=== PATIENT | female | born 1985 | race American Indian/Alaskan Native ===

== ENCOUNTER → 2016-12-12 | Emergency (ER) | payer OTHER ==
[~2016-12-12] VITALS: Ht 162.6 cm; Wt 121.6 kg
[~2016-12-12] MED LIST: FLEXERIL10 MG PO; FLOVENT HFA12 G1 INH; GABAPENTIN600 MG PO; HYDROCODON-ACE1 EA11 PO; KEPPRA250 MG PO; LEVETIRACETAM500 MG; LORAZEPAM1 MG PO; VENTOLIN HFA18 GM IH; VICODIN 5-5001 EACH PO; VIMPAT100 MG PO; ZITHROMAX250 MG PO
--- NOTE | 2016-12-12 21:46 | EKG ---
[facility] [address] [facility] [place] [address] Signed Normal sinus rhythm Normal ECG No previous ECGs available Confirmed by MARYANN ARDON MD ([id number]) on 12/12/2016 9:46:20 PM Electronically Signed By: MARYANN ARDON MD 12/12/16 2146 PATIENT NAME: CRISTOBAL JACQUES Electrocardiogram DATE OF : 85 PHYSICIAN: MARYANN ARDON MD REPORT #: [id number] REPORT IS CONFIDENTIAL AND NOT TO BE RELEASED WITHOUT AUTHORIZATION
== END ==
LOC: ED 17:36
DX: R20.8 Other disturbances of skin sensation (principal); M54.2 Cervicalgia; F41.9 Anxiety disorder, unspecified; F43.10 Post-traumatic stress disorder, unspecified; G40.909 Epilepsy, unspecified, not intractable, without status epilepticus; Z87.891 Personal history of nicotine dependence; Z90.49 Acquired absence of other specified parts of digestive tract; Z90.89 Acquired absence of other organs; Z88.1 Allergy status to other antibiotic agents; Z88.0 Allergy status to penicillin; Z79.899 Other long term (current) drug therapy
CPT/HCPCS: 70450; 93005; 93010; 99284

== ENCOUNTER 2017-07-06 11:32 | Emergency (ER) | payer OTHER ==
[~2017-07-06] VITALS: Ht 162.6 cm; Wt 121.6 kg
--- OUTSIDE RECORDS SUMMARY | 2017-07-06 12:22 | XMS | Clinical Summary ---
Demographics + + + | Address | [address] | | | [place] [address] | + + + | Home Phone | | + + + | Preferred Language | Unknown | + + + | Marital Status | Single | + + + | Jew Affiliation | ANALY | + + + | Race | or | + + + | Ethnic Group | Not or | + + + Author + + + | Author | [facility] | + + + | Organization | [facility] | + + + | Address | Unknown | + + + | Phone | Unavailable | + + + Support + + +---------+ + | Name | Relationship | Address | Phone | + + +---------+ + | Naima Pitts | ECON | Unknown | | + + +---------+ + Care Team Providers + +------+ + | Care Slide Machine Tender Name | Role | Phone | + +------+ + | Terra AlvarezP | PP | Unavailable | + +------+ + Source Comments DIANDRA is fully live on both [facility]ulatory and [facility] InPatient.[facility] Allergies + + + + + + | Active Allergy | Reactions | Severity | Noted | Comments | | | | | Date | | + + + + + + | Amoxicillin | Hives, Pruritus | | 09/10/19 | | | | | | 12 | | + + + + + + | Propoxyphene | Pruritus | | 11/16/19 | | | N-Acetaminophen | | | 12 | | + + + + + + | Penicillin G | Hives, Pruritus | | 09/10/19 | | | | | | 12 | | + + + + + + Current Medications + + + +---------+------+------+-------+ | Prescription | Sig. | Disp. | Refills | Star | End | Statu | | | | | | t | Date | s | | | | | | Date | | | + + + +---------+------+------+-------+ | | Take 1 Tab by mouth | | | | | Activ | | acetaminophen-codein | every six hours as | | | | | e | | e 300-30 mg Oral | needed. | | | | | | | Tablet | | | | | | | + + + +---------+------+------+-------+ | chlorhexidine 0.12 | Take 15 mL by mouth | | | | | Activ | | % Mucous Membrane | two times daily. | | | | | e | | Mouthwash | Swish undiluted oral | | | | | | | | rinse around in | | | | | | | | mouth for 30 | | | | | | | | seconds, then spit. | | | | | | | | Do not swallow. | | | | | | + + + +---------+------+------+-------+ | citalopram 10 mg | Take 10 mg by mouth | | | | | Activ | | Oral Tablet | once daily. | | | | | e | + + + +---------+------+------+-------+ | clindamycin 300 mg | Take 300 mg by mouth | | | | | Activ | | Oral Capsule | every eight hours. | | | | | e | | | | | | | | | + + + +---------+------+------+-------+ | cyclobenzaprine 10 | Take 10 mg by mouth | | | | | Activ | | mg Oral Tablet | three times daily as | | | | | e | | | needed. Do not use | | | | | | | | longer than 2-3 | | | | | | | | weeks. | | | | | | + + + +---------+------+------+-------+ | docusate sodium | Take 100 mg by mouth | | | | | Activ | | 100 mg Oral Capsule | two times daily. | | | | | e | + + + +---------+------+------+-------+ | ergocalciferol | Take 50,000 Units by | | | | | Activ | | 50,000 unit Oral | mouth every seven | | | | | e | | Capsule | days. | | | | | | + + + +---------+------+------+-------+ | gabapentin 600 mg | Take 600 mg by mouth | | | | | Activ | | Oral | four times daily. | | | | | e | | TabletIndications: | Indications: Partial | | | | | | | Partial Epilepsy | Epilepsy Treatment | | | | | | | Treatment Adjunct | Adjunct | | | | | | + + + +---------+------+------+-------+ | levOCARNitine 500 | Take 500 mg by | | | | | Activ | | mg Oral Wafer | mouth. | | | | | e | + + + +---------+------+------+-------+ | LORazepam 0.5 mg | Take 0.5 mg by mouth | | | | | Activ | | Oral | every four hours as | | | | | e | | TabletIndications: | needed. | | | | | | | anxiety, seizure | Indications: | | | | | | | auras | Anxiety, seizure | | | | | | | | auras | | | | | | + + + +---------+------+------+-------+ | | Take 1-2 Tabs by | | | | | Activ | | aspirin-acetaminophe | mouth every four | | | | | e | | n-caffeine (EXCEDRIN | hours as needed. | | | | | | | MIGRAINE) | Indications: | | | | | | | 250-250-65 mg Oral | Headache Disorder, | | | | | | | TabletIndications: | Migraine | | | | | | | Headache Disorder, | | | | | | | | Migraine | | | | | | | + + + +---------+------+------+-------+ | LORazepam 0.5 mg | Take 1 tablet by | 6 Tab | 0 | 08/1 | | Activ | | Oral Tablet | mouth twice daily | | | 0/20 | | e | | | for 2 days, then 1 | | | 12 | | | | | tablet by mouth at | | | | | | | | night for 2 days, | | | | | | | | then discontinue. | | | | | | | | Can continue to take | | | | | | | | lorazepam 0.5 mg q | | | | | | | | 4 hours PRN | | | | | | | | aura/seizure as | | | | | | | | before. | | | | | | + + + +---------+------+------+-------+ | levETIRAcetam 250 | Take 1 Tab by mouth | 60 Tab | 1 | 09/0 | | Activ | | mg Oral | two times daily. | | | 20 | | e | | tabletIndications: | Indications: Partial | | | 12 | | | | Partial Epilepsy | Epilepsy Treatment | | | | | | | Treatment Adjunct | Adjunct | | | | | | + + + +---------+------+------+-------+ Active Problems + + + | Problem | Noted Date | + + + | Convulsion (HCC) | 11/16/2011 | + + + | Migraine with aura, intractable | 11/16/2011 | + + + | Low back pain - Chronic | 11/16/2011 | + + + | Depression with anxiety | 11/16/2011 | + + + | Arthritis - Hands | 11/16/2011 | + + + Family History + + +------+ + | Medical History | Relation | Name | Comments | + + +------+ + | Arthritis | Maternal | | | | | Aunt | | | + + +------+ + | Arthritis | Maternal | | | | | Grandmoth | | | | | er | | | + + +------+ + | Arthritis | Maternal | | | | | Uncle | | | + + +------+ + | Arthritis | Mother | | | + + +------+ + + +------+--------+ + | Relation | Name | Status | Comments | + +------+--------+ + | Maternal Aunt | | | | + +------+--------+ + | Maternal Grandmother | | | | + +------+--------+ + | Maternal Uncle | | | | + +------+--------+ + | Mother | | | | + +------+--------+ + Social History + +-------+ +--------+------+ | Tobacco Use | Types | Packs/Day | Years | Date | | | | | Used | | + +-------+ +--------+------+ | Never Smoker | | | | | + +-------+ +--------+------+ + + +---------+ + | Alcohol Use | Drinks/We | oz/Week | Comments | | | ek | | | + + +---------+ + | Yes | | | 4 - 5 x per year, but can may drink "alot" | | | | | when she drinks | + + +---------+ + + + + | Sex Assigned at | Date Recorded | | | | + + + | Not on file | | + + + Last Filed Vital Signs + + + + | Vital Sign | Reading | Time Taken | + + + + | Blood Pressure | 115/67 | 11/20/2011 8:50 AM PDT | + + + + | Pulse | 84 | 11/20/2011 8:50 AM PDT | + + + + | Temperature | 36.7 C (98.1 F) | 11/20/2011 8:50 AM PDT | + + + + | Respiratory Rate | 14 | 11/20/2011 8:50 AM PDT | + + + + | Oxygen Saturation | 98% | 11/20/2011 8:50 AM PDT | + + + + | Inhaled Oxygen | - | - | | Concentration | | | + + + + | Weight | 117.9 kg (260 lb) | 09/10/2011 1:13 PM PDT | + + + + | Height | 162.6 cm (5' 4") | 11/16/2011 7:44 PM PDT | + + + + | Body Mass Index | 46.06 | 09/10/2011 1:13 PM PDT | + + + + Plan of Treatment + + + + + | Health Maintenance | Due Date | Last Done | Comments | + + + + + | INFLUENZA VACCINE | | | | | (FLU SHOT) | 7 | | | + + + + + Results Not on filefrom Last 3 Months
[2017-07-06] MEDS ORDERED: NORCO 5-325 TA1 EACH PO (14:02)
[2017-07-06] MEDS ORDERED: ANUSOL-HC25 MG PR (14:02)
== END 2017-07-06 14:25 | disposition home or self-care (01) ==
LOC: ED 11:32
DX: K62.5 Hemorrhage of anus and rectum (principal); G40.909 Epilepsy, unspecified, not intractable, without status epilepticus; F41.9 Anxiety disorder, unspecified; Z87.891 Personal history of nicotine dependence; Z88.1 Allergy status to other antibiotic agents; Z88.0 Allergy status to penicillin; Z88.8 Allergy status to other drugs, medicaments and biological substances; Z79.899 Other long term (current) drug therapy
CPT/HCPCS: 74177; 80048; 81001; 84703; 85025; 99284; Q9967

== ENCOUNTER 2017-08-16 13:40 | Emergency (ER) | payer OTHER ==
[~2017-08-16] VITALS: Ht 162.6 cm; Wt 121.6 kg
[~2017-08-16 13:40] MED LIST changes: +ANUSOL-HC25 MG PR; +NORCO 5-325 TA1 EACH PO
[2017-08-16] MEDS ORDERED: APTIOM400 MG PO (14:41)
[2017-08-16] MEDS ORDERED: IBUPROFEN800 MG PO (14:53)
[2017-08-16] MEDS ORDERED: ZOFRAN4 MG PO (14:54)
[2017-08-16] MEDS ORDERED: MELOXICAM15 MG PO (14:54)
[2017-08-16] MEDS ORDERED: PAROXETINE HCL20 MG PO (14:55)
[2017-08-16] MEDS ORDERED: PAIN RELIEVER500 M1 PO (14:56)
[2017-08-16] MEDS ORDERED: ROBAXIN-750750 MG PO (14:57)
[2017-08-16] MEDS ORDERED: ALLERGY RELIEF60 MG PO (14:59)
[2017-08-16] MEDS ORDERED: POTASSIUM GLUC500 MG PO (15:00)
[2017-08-16] MEDS ORDERED: VITAMIN D2000 UNI1 PO (15:01)
[2017-08-16] MEDS ORDERED: LORAZEPAM0.5 MG PO (15:03)
[2017-08-16] MEDS ORDERED: VIMPAT100 MG PO (15:03)
--- NOTE | 2017-08-17 08:04 | EKG ---
[facility] [address] [facility] [place] [address] Signed Normal sinus rhythm Nonspecific T wave abnormality Prolonged QT Abnormal ECG When compared with ECG of 12-DEC-2016 18:30, Nonspecific T wave abnormality now evident in Lateral leads Confirmed by CECIILA BRUCE MD ([id number]) on 08/17/2017 8:04:11 AM Electronically Signed By: CECILIA BRUCE MD 08/17/17 0804 PATIENT NAME: MAUREENCRISTOBAL VERA Electrocardiogram DATE OF : 85 PHYSICIAN: CECILIA BRUCE MD REPORT #: [id number] REPORT IS CONFIDENTIAL AND NOT TO BE RELEASED WITHOUT AUTHORIZATION
== END 2017-08-16 19:50 | disposition home or self-care (01) ==
LOC: ED 13:40
DX: S06.0X0A Concussion without loss of consciousness, initial encounter (principal); S39.012A Strain of muscle, fascia and tendon of lower back, initial encounter; S29.012A Strain of muscle and tendon of back wall of thorax, initial encounter; S16.1XXA Strain of muscle, fascia and tendon at neck level, initial encounter; S30.1XXA Contusion of abdominal wall, initial encounter; S20.219A Contusion of unspecified front wall of thorax, initial encounter; S00.03XA Contusion of scalp, initial encounter; S00.83XA Contusion of other part of head, initial encounter; G40.909 Epilepsy, unspecified, not intractable, without status epilepticus; M79.609 Pain in unspecified limb; M79.1 Myalgia; R55 Syncope and collapse; R20.2 Paresthesia of skin; T42.6X5A Adverse effect of other antiepileptic and sedative-hypnotic drugs, initial encounter; Z88.0 Allergy status to penicillin; Z88.1 Allergy status to other antibiotic agents; Z79.899 Other long term (current) drug therapy; W18.2XXA Fall in (into) shower or empty bathtub, initial encounter
CPT/HCPCS: 70450; 71260; 72125; 74177; 80053; 82542; 84703; 85025; 93005; 93010; 96361; 96374; 96375; 99284; J1170; J2060; J2405; J7120; Q9967

== ENCOUNTER 2017-08-24 10:54 | Emergency (ER) | payer OTHER ==
[~2017-08-24] VITALS: Ht 162.6 cm; Wt 121.6 kg
[~2017-08-24 10:54] MED LIST changes: +ALLERGY RELIEF60 MG PO; +APTIOM400 MG PO; +IBUPROFEN800 MG PO; +LORAZEPAM0.5 MG PO; +MELOXICAM15 MG PO; +PAIN RELIEVER500 M1 PO; +PAROXETINE HCL20 MG PO; +POTASSIUM GLUC500 MG PO; +ROBAXIN-750750 MG PO; +VITAMIN D2000 UNI1 PO; +ZOFRAN4 MG PO
[2017-08-24] MEDS ORDERED: HORIZANT600 MG PO (13:35)
== END 2017-08-24 15:15 | disposition home or self-care (01) ==
LOC: ED 10:54
DX: E87.6 Hypokalemia (principal); G40.909 Epilepsy, unspecified, not intractable, without status epilepticus; R53.1 Weakness; F41.9 Anxiety disorder, unspecified; G43.909 Migraine, unspecified, not intractable, without status migrainosus; F17.200 Nicotine dependence, unspecified, uncomplicated; Z88.0 Allergy status to penicillin; Z88.1 Allergy status to other antibiotic agents; Z79.899 Other long term (current) drug therapy
CPT/HCPCS: 80053; 81001; 84703; 85025; 99283; J7030

== ENCOUNTER 2017-08-26 14:54 | Emergency (ER) | payer OTHER ==
[~2017-08-26] VITALS: Ht 162.6 cm; Wt 121.6 kg
[~2017-08-26 14:54] MED LIST changes: +HORIZANT600 MG PO
[2017-08-26] MEDS ORDERED: CIPRO500 MG PO (21:37)
== END 2017-08-26 21:51 | disposition home or self-care (01) ==
LOC: ED 14:54
DX: G40.909 Epilepsy, unspecified, not intractable, without status epilepticus (principal); N39.0 Urinary tract infection, site not specified; F22 Delusional disorders; F41.9 Anxiety disorder, unspecified; Z88.0 Allergy status to penicillin; Z88.1 Allergy status to other antibiotic agents; Z79.899 Other long term (current) drug therapy
CPT/HCPCS: 36415; 80053; 80176; 81001; 84443; 85025; 87077; 87088; 87186; 99283; G0480

== ENCOUNTER 2017-08-31 18:53 | Inpatient (IN) | payer OTHER ==
[~2017-08-31] VITALS: Ht 162.6 cm; Wt 55.3 kg
[~2017-08-31 18:53] MED LIST changes: +CIPRO500 MG PO
[2017-08-31] MEDS ORDERED: SULFAMETHOXAZO1 EAC1 PO (19:26)
[2017-09-01] MEDS ORDERED: BACITRACIN1 PKT TOP (14:10)
[2017-09-01] MEDS ORDERED: CLOTRIM ANTIFUN15 GM TOP (14:10)
[2017-09-01] MEDS ORDERED: APTIOM400 MG PO (14:11)
[2017-09-01] MEDS ORDERED: DOCUSATE SODIU100 MG PO (14:11)
[2017-09-01] MEDS ORDERED: APTIOM800 MG PO (14:12)
[2017-09-01] MEDS ORDERED: ANUCORT-HC25 MG PR (14:13)
[2017-09-01] MEDS ORDERED: NORCO 5-325 TA1 EACH PO (14:13)
[2017-09-01] MEDS ORDERED: CYCLOBENZAPRINE10 MG PO (14:13)
[2017-09-06] MEDS ORDERED: CYANOCOBAL1000 MCG/M IM (12:09)
== END 2017-09-06 13:05 | disposition home or self-care (01) | DRG 641 ==
LOC: ED 18:53 → MS 09-01 01:15
PROVIDERS: ADMIT Internal Medicine
DX: E53.8 Deficiency of other specified B group vitamins (principal); R29.6 Repeated falls; E87.6 Hypokalemia; F43.10 Post-traumatic stress disorder, unspecified; M62.81 Muscle weakness (generalized); F41.8 Other specified anxiety disorders; G89.4 Chronic pain syndrome; E86.0 Dehydration; G40.409 Other generalized epilepsy and epileptic syndromes, not intractable, without status epilepticus; Z79.891 Long term (current) use of opiate analgesic; Z79.899 Other long term (current) drug therapy; Z88.1 Allergy status to other antibiotic agents; Z88.0 Allergy status to penicillin
CPT/HCPCS: 36415; 70450; 72128; 74177; 80048; 80053; 82607; 83735; 84100; 84425; 85025; 96361; 96374; 97110; 97116; 97162; 97530; 99285; J1650; J1885; J2060; J2270; J3411; J3420; J3480; J7030; J7042; Q9967

== ENCOUNTER 2017-09-07 08:41 | Emergency (ER) | payer OTHER ==
[~2017-09-07] VITALS: Ht 162.6 cm; Wt 113.4 kg
[~2017-09-07 08:41] MED LIST changes: +ANUCORT-HC25 MG PR; +APTIOM800 MG PO; +BACITRACIN1 PKT TOP; +CLOTRIM ANTIFUN15 GM TOP; +CYANOCOBAL1000 MCG/M IM; +CYCLOBENZAPRINE10 MG PO; +DOCUSATE SODIU100 MG PO; +SULFAMETHOXAZO1 EAC1 PO
== END 2017-09-07 13:05 | disposition home or self-care (01) ==
LOC: ED 08:41
DX: R07.81 Pleurodynia (principal); R53.1 Weakness; G40.909 Epilepsy, unspecified, not intractable, without status epilepticus; G43.909 Migraine, unspecified, not intractable, without status migrainosus; F41.9 Anxiety disorder, unspecified; Z88.0 Allergy status to penicillin; Z88.1 Allergy status to other antibiotic agents; Z79.899 Other long term (current) drug therapy; W18.30XA Fall on same level, unspecified, initial encounter
CPT/HCPCS: 36415; 71046; 80053; 83735; 84703; 85025; 99283

== ENCOUNTER 2022-03-15 17:59 | Emergency (ER) | payer OTHER ==
[~2022-03-15] VITALS: Ht 162.6 cm; Wt 113.4 kg
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
[2022-03-15] MEDS ORDERED: VITAMIN B-1100 M1 PO (18:22)
[2022-03-15] MEDS ORDERED: HYDROCHLOROTH12.5 MG PO (18:22)
[2022-03-15] MEDS ORDERED: SUDOGEST60 MG PO (18:24)
== END 2022-03-15 22:02 | disposition home or self-care (01) ==
LOC: ED 17:59
DX: T74.11XA Adult physical abuse, confirmed, initial encounter (principal); T14.8XXA Other injury of unspecified body region, initial encounter; S40.212A Abrasion of left shoulder, initial encounter; G40.909 Epilepsy, unspecified, not intractable, without status epilepticus; Z88.0 Allergy status to penicillin; Z88.8 Allergy status to other drugs, medicaments and biological substances; Z79.899 Other long term (current) drug therapy
CPT/HCPCS: 70450; 71046; 72125; 99284-25; A9270

== ENCOUNTER 2022-07-01 15:57 | Emergency (ER) | payer OTHER ==
[~2022-07-01] VITALS: Ht 162.6 cm; Wt 99.3 kg
[~2022-07-01 15:57] MED LIST changes: +HYDROCHLOROTH12.5 MG PO; +SUDOGEST60 MG PO; +VITAMIN B-1100 M1 PO
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
[2022-07-01] MEDS ORDERED: UBRELVY100 MG PO (16:13)
[2022-07-01] MEDS ORDERED: VALACYCLOVIR1000 MG PO (16:32)
== END 2022-07-01 17:09 | disposition home or self-care (01) ==
LOC: ED 15:57
DX: B02.9 Zoster without complications (principal); G40.909 Epilepsy, unspecified, not intractable, without status epilepticus; Z88.0 Allergy status to penicillin; Z88.8 Allergy status to other drugs, medicaments and biological substances; Z88.1 Allergy status to other antibiotic agents; Z79.899 Other long term (current) drug therapy
CPT/HCPCS: 96372; 99283; J1885